=== PATIENT | female | born 1980 | race Caucasian/White ===

== ENCOUNTER 2018-02-14 17:55 | Emergency (ER) | payer SELFPAY ==
[2018-02-14] MEDS: HYDROCODONE/APAP (10/325) TAB PO (22:18)
[2018-02-14] MEDS: CEFAZOLIN 1 GM INJ IM (22:19)
[2018-02-14] MEDS: DIPHTH/TET/ACEL PERTUSS (ADULT) 0.5 ML VIAL IM* (22:33)
== END 2018-02-14 22:57 | disposition home or self-care (01) ==
LOC: FTE 17:55
DX: S06.0X0A Concussion without loss of consciousness, initial encounter (principal); S20.211A Contusion of right front wall of thorax, initial encounter; S62.632A Displaced fracture of distal phalanx of right middle finger, initial encounter for closed fracture; E03.9 Hypothyroidism, unspecified; V89.2XXA Person injured in unspecified motor-vehicle accident, traffic, initial encounter; Z23 Encounter for immunization
CPT/HCPCS: 29130; 70450; 71046; 73130-RT; 81025; 90471; 90715; 96372; 99284-25